=== PATIENT | male | born 1940 | race Caucasian/White ===

== ENCOUNTER 2017-05-12 13:18 | Observation (INO) | payer MEDICARE, MEDICAID ==
--- NOTE | 2017-05-12 13:46 | ED PDOC ---
HPI: General Adult Time Seen by Provider: 05/12/17 13:26 Chief Complaint (Nursing): Dizziness/Lightheaded Chief Complaint (Provider): Dizziness/Lightheaded History Per: Patient, EMS History/Exam Limitations: no limitations Onset/Duration Of Symptoms: Days (x today) Current Symptoms Are (Timing): Still Present Additional Complaint(s): Rosette is a 77 year old male who was referred by PMD to the emergency department for dizziness and low blood pressure, onset while in office today. Patient denies chest pain, palpitations, headache or loss of consciousness. PMD: [place] Past Medical History Reviewed: Historical Data, Nursing Documentation, Vital Signs Vital Signs: Last Vital Signs Temp 98 F 05/12/17 13:19 Pulse 65 05/12/17 13:38 Resp 16 05/12/17 13:38 BP 96/65 L 05/12/17 13:38 Pulse Ox 100 05/12/17 13:52 - Medical History PMH: HTN, Chronic Kidney Disease - Family History Family History: States: Unknown Family Hx - Allergies Allergies/Adverse Reactions: Allergies Allergy/AdvReac Type Severity Reaction Status Date / Time No Known Allergies Allergy Verified 05/12/17 13:21 Review of Systems ROS Statement: Except As Marked, All Systems Reviewed And Found Negative Cardiovascular: Negative for: Chest Pain, Palpitations Neurological: Positive for: Dizziness. Negative for: Headache, Other (loss of consciousness) Physical Exam - Reviewed Nursing Documentation Reviewed: Yes Vital Signs Reviewed: Yes - Physical Exam Appears: Positive for: Non-toxic Cardiovascular/Chest: Positive for: Regular Rate, Rhythm Respiratory: Positive for: Normal Breath Sounds. Negative for: Respiratory Distress Gastrointestinal/Abdominal: Positive for: Normal Exam, Soft. Negative for: Tenderness Extremity: Positive for: Normal ROM (Full). Negative for: Deformity Neurologic/Psych: Positive for: Alert, Oriented. Negative for: Motor/Sensory Deficits - Laboratory Results Result Diagrams: 05/12/17 13:50 05/12/17 13:50 - ECG O2 Sat by Pulse Oximetry: 100 (RA) Pulse Ox Interpretation: Normal Medical Decision Making Medical Decision Making: Time: 13:38 Plam: - EKG - CMP - ED Urine Dipstick - CBC Scribe Attestation: Documented by Antwan Clements, acting as a scribe for Richard Rust MD Pt states he feels well. Hypootension probably secondary to multiple antihypertensive meds, not sepsis or cardiogenic. Will place in obs for adjustment of BP meds and BP monitoring. Provider Scribe Attestation: All medical record entries made by the Scribe were at my direction and personally dictated by me. I have reviewed the chart and agree that the record accurately reflects my personal performance of the history, physical exam, medical decision making, and the department course for this patient. I have also personally directed, reviewed, and agree with the discharge instructions and disposition. Disposition - Clinical Impression Clinical Impression: Dizziness, Hypotension due to medication - Patient ED Disposition Is Patient to be Admitted: Yes - Disposition Disposition Time: 14:34 Condition: FAIR Forms: [employer] (Lithuanian) - Pt Status Changed To: Hospital Disposition Of: Observation - POA Present On Arrival: None
[2017-05-12 14:08] LABS: BASO # 0.1 K/uL (0.0-0.2); BASO % 1.2 % (0.0-2.0); EOS # 0.2 K/uL (0.0-0.7); EOS % 1.9 % (0.0-4.0); LYMPH # 1.4 K/uL (1.0-4.3); LYMPH % 16.8 % (20.0-40.0); MEAN CELL VOLUME 78.6 fl (80.0-94.0); MEAN CORPUSCULAR HEMOGLOBIN 25.8 pg (27.0-31.0); MEAN CORPUSCULAR HGB CONC 32.8 g/dL (33.0-37.0); MEAN PLATELET VOLUME 7.7 fl (7.2-11.7); MONO # 0.5 K/uL (0.0-0.8); MONO % 5.8 % (0.0-10.0); NEUT # 6.2 K/uL (1.8-7.0); NEUT % 74.3 % (50.0-75.0); NRBC % 0.1 % (0.0-0.0); RBC 5.06 Mil/uL (4.40-5.90); RED CELL DISTRIBUTION WIDTH 15.2 % (11.5-14.5); WHITE BLOOD COUNT 8.3 K/uL (4.8-10.8)
[2017-05-12 14:28] LABS: ALB/GLOB RATIO 1.2 (1.0-2.1); ALBUMIN 3.9 g/dL (3.5-5.0); CALCIUM 9.2 mg/dL (8.4-10.2)
[2017-05-12] MEDS ORDERED: Acetaminophen 650mg/20.3ml solution UD PO PRN (22:47)
[2017-05-13] MEDS ORDERED: Influenza Vaccine 18yr & older 0.5 ML/45 MCG SYR IM ONE (06:00)
[2017-05-13 06:20] LABS: HEMOGLOBIN 12.5 g/dL (12.0-18.0); MEAN CELL VOLUME 78.9 fl (80.0-94.0); MEAN CORPUSCULAR HEMOGLOBIN 25.8 pg (27.0-31.0); MEAN CORPUSCULAR HGB CONC 32.7 g/dL (33.0-37.0); RBC 4.83 Mil/uL (4.40-5.90); RED CELL DISTRIBUTION WIDTH 15.4 % (11.5-14.5); WHITE BLOOD COUNT 7.5 K/uL (4.8-10.8)
[2017-05-13] MEDS ORDERED: Levothyroxine 75 MCG TAB PO SCH (06:30)
--- NOTE | 2017-05-13 08:38 | CP.PCM.HP ---
History of Present Illness - History of Present Illness History of Present Illness: 77 YO M w/ PMH of HTN was admitted after being refered from his PMD Dr. Weiner for hypotension and dizziness in the office visit. Patient currently denies chest pain, SOB, N/V/D. Patients vitals have been stable overnight. At home patient's BP meds were Norvasc 5, HTZ 25, Lopresser BID PMH: HTN, CKD, BPH Allergy: NKDA FH: not sig PMD: Dr Weiner/Dr. [place]? Present on Admission - Present on Admission Any Indicators Present on Admission: No Past Patient History - Past Medical History & Family History Past Medical History?: Yes - Past Social History Smoking Status: Never Smoked - CARDIAC Hx Cardiac Disorders: Yes Hx Hypertension: Yes - PULMONARY Hx Respiratory Disorders: No - NEUROLOGICAL Hx Neurological Disorder: No - HEENT Hx HEENT Problems: No - RENAL Hx Chronic Kidney Disease: Yes - ENDOCRINE/METABOLIC Hx Endocrine Disorders: No - HEMATOLOGICAL/ONCOLOGICAL Hx Blood Disorders: No - INTEGUMENTARY Hx Dermatological Problems: No - MUSCULOSKELETAL/RHEUMATOLOGICAL Hx Musculoskeletal Disorders: No Hx Falls: No - GASTROINTESTINAL Hx Gastrointestinal Disorders: No - GENITOURINARY/GYNECOLOGICAL Hx Genitourinary Disorders: No - PSYCHIATRIC Hx Psychophysiologic Disorder: No Hx Substance Use: No - SURGICAL HISTORY Hx Surgeries: Yes Hx Cholecystectomy: Yes Hx Herniorrhaphy: Yes - ANESTHESIA Hx Anesthesia: Yes Hx Anesthesia Reactions: No Hx Malignant Hyperthermia: No Has any member of the family had a problem w/ anesthesia?: No Meds Allergies/Adverse Reactions: Allergies Allergy/AdvReac Type Severity Reaction Status Date / Time No Known Allergies Allergy Verified 05/12/17 13:21 Physical Exam - Constitutional Appears: No Acute Distress - Head Exam Head Exam: NORMAL INSPECTION - Respiratory Exam Respiratory Exam: Clear to Auscultation Bilateral. absent: Rhonchi, Wheezes - Cardiovascular Exam Cardiovascular Exam: REGULAR RHYTHM, +S1, +S2 - GI/Abdominal Exam GI & Abdominal Exam: Normal Bowel Sounds, Soft. absent: Tenderness - Neurological Exam Neurological exam: Alert, CN II-XII Intact, Oriented x3 Results - Vital Signs Recent Vital Signs: Last Vital Signs Temp 97.4 F L 05/13/17 08:00 Pulse 69 05/13/17 08:00 Resp 18 05/13/17 08:00 BP 127/74 05/13/17 08:00 Pulse Ox 98 05/13/17 08:00 - Labs Result Diagrams: 05/13/17 04:38 05/13/17 04:38 Labs: Laboratory Results - last 24 hr 05/12/17 05/12/17 05/12/17 13:28 13:50 13:50 WBC 8.3 RBC 5.06 Hgb 13.0 Hct 39.7 MCV 78.6 L MCH 25.8 L MCHC 32.8 L RDW 15.2 H Plt Count 180 MPV 7.7 Neut % (Auto) 74.3 Lymph % (Auto) 16.8 L [place] % (Auto) 5.8 Eos % (Auto) 1.9 Baso % (Auto) 1.2 Neut # (Auto) 6.2 Lymph # (Auto) 1.4 [place] # (Auto) 0.5 Eos # (Auto) 0.2 Baso # (Auto) 0.1 Sodium 142 Potassium 4.7 Chloride 100 Carbon Dioxide 32 H Anion Gap 15 BUN 72 H Creatinine 4.3 H Est GFR ( Amer) 16 Est GFR (Non-Af Amer) 14 POC Glucose (mg/dL) 136 H Random Glucose 116 H Calcium 9.2 Total Bilirubin 0.5 AST 22 ALT 27 Alkaline Phosphatase 64 Total Protein 7.1 Albumin 3.9 Globulin 3.2 Albumin/Globulin Ratio 1.2 Triglycerides Cholesterol LDL Cholesterol Direct HDL Cholesterol Vitamin B12 05/13/17 05/13/17 04:38 04:38 WBC 7.5 RBC 4.83 Hgb 12.5 Hct 38.1 MCV 78.9 L MCH 25.8 L MCHC 32.7 L RDW 15.4 H Plt Count 169 MPV Neut % (Auto) Lymph % (Auto) [place] % (Auto) Eos % (Auto) Baso % (Auto) Neut # (Auto) Lymph # (Auto) [place] # (Auto) Eos # (Auto) Baso # (Auto) Sodium 140 Potassium 4.3 Chloride 97 L Carbon Dioxide 32 H Anion Gap 15 BUN 74 H Creatinine 4.6 H Est GFR ( Amer) 15 Est GFR (Non-Af Amer) 13 POC Glucose (mg/dL) Random Glucose 195 H Calcium 9.0 Total Bilirubin AST ALT Alkaline Phosphatase Total Protein Albumin Globulin Albumin/Globulin Ratio Triglycerides 231 H Cholesterol 126 LDL Cholesterol Direct 60 HDL Cholesterol 20 L Vitamin B12 325 Assessment & Plan - Assessment and Plan (Free Text) Assessment: 77 YO M who was send to the ER from his PMD for hypotension and dizziness was admitted - Hold BP Meds - Hypotension and dizziness most likely secondary to overcontrolled BP - continue current management - Vitals have remained stable overnight, patient is doing well. Hypotension has resolved on holding medications.
[2017-05-13] MEDS ORDERED: Pantoprazole 40 mg EC Tab PO SCH (09:00)
--- NOTE | 2017-05-13 11:27 | CARD ---
APPROVED REPORT EKG Measurement Heart [id number] <Conclusion> Sinus rhythm Left axis deviation Minimal voltage criteria for LVH, may be normal variant Nonspecific T wave abnormality Abnormal ECG
[2017-05-13 15:51] VITALS: BP 110/67; PULSE 78; RESP 20; TEMP 97.7; O2SAT 96
--- NOTE | 2017-05-13 16:10 | CP.PCM.PCO ---
Assessment/Plan - Assessment and Plan (Free Text) Assessment: Patient seen and examined BP 110/74, pt asymptomatic. denies chest pain, shortness of breath, dizziness. Plan discussed with dr chawla: hold all bp meds for discharge Pt to follow up in Dr Holland office on tuesday. Continue other home medications. Pt will be discharged, all discusssed with Dr Fournier working with Dr Ferguson.
--- NOTE | 2017-05-13 16:19 | CP.PCM.CON ---
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 NOT YET ON HD HYPOTENSION WITH BP KYRGYZ 88 / 40 PT WAS SEEN AT MY OFFICE YESTERDAY ON REGULAR RENAL F/U .. PT DID NOT FEEL WELL WAS C/O WEAKNESS .. TIREDNESS AND LETHARGY .. BP WAS LOW 88 / 40 .. PT WAS SUPPOSED TO BE ON 5 ANTI HTN MEDS PT ALSO LOST 18 LBS FROM LAST VISIT .. HAVING CAME BACK FROM 3 MONTHS VISIT TO [place] 8 DAYS AGO PT IS PLEASANT BUT HE IS UNSURE ABOUT ALL HIS BP MEDS WHICH HE ADMITS OF TAKING THEM SELECTIVELY I DIRECTED NV TO GO FROM MY OFFICE TO THE ER FOR WALDEMAR AND ADMISSION .. PT WITH MMP AND PREVIOUS ADMISSIONS TO [facility] .. Past Patient History - Past Medical History & Family History Past Medical History?: Yes - Past Social History Smoking Status: Never Smoked - CARDIAC Hx Cardiac Disorders: Yes Hx Hypertension: Yes - PULMONARY Hx Respiratory Disorders: No - NEUROLOGICAL Hx Neurological Disorder: No - HEENT Hx HEENT Problems: No - RENAL Hx Chronic Kidney Disease: Yes - ENDOCRINE/METABOLIC Hx Endocrine Disorders: No - HEMATOLOGICAL/ONCOLOGICAL Hx Blood Disorders: No - INTEGUMENTARY Hx Dermatological Problems: No - MUSCULOSKELETAL/RHEUMATOLOGICAL Hx Musculoskeletal Disorders: No Hx Falls: No - GASTROINTESTINAL Hx Gastrointestinal Disorders: No - GENITOURINARY/GYNECOLOGICAL Hx Genitourinary Disorders: No - PSYCHIATRIC Hx Psychophysiologic Disorder: No Hx Substance Use: No - SURGICAL HISTORY Hx Surgeries: Yes Hx Cholecystectomy: Yes Hx Herniorrhaphy: Yes - ANESTHESIA Hx Anesthesia: Yes Hx Anesthesia Reactions: No Hx Malignant Hyperthermia: No Has any member of the family had a problem w/ anesthesia?: No Meds Allergies/Adverse Reactions: Allergies Allergy/AdvReac Type Severity Reaction Status Date / Time No Known Allergies Allergy Verified 05/12/17 13:21 - Medications Medications: Current Medications Acetaminophen (Tylenol 650mg/20.3ml Solution Ud) 500 mg PO Q8H PRN PRN Reason: Pain, moderate (4-7) Ergocalciferol (Drisdol 50,000 Intl Units Cap) 1 cap PO FR [facility] Ferrous Sulfate (Feosol) 325 mg PO DAILY [facility] Last Admin: 05/13/17 10:11 Dose: 325 mg Heparin Sodium (Porcine) (Heparin) 5,000 units SC Q8 SHARON PRN Reason: Protocol Last Admin: 05/13/17 10:12 Dose: 5,000 units Home Med (Dutasteride [Avodart]) 0.5 mg PO HS [facility] Home Med (Sevelamer Carbonate [Renvela]) 800 mg PO TID [facility] Insulin Human Lispro (Humalog) 0 units SC ACHS [facility] PRN Reason: Protocol Levothyroxine Sodium (Synthroid) 75 mcg PO DAILY@0630 [facility] Last Admin: 05/13/17 05:39 Dose: 75 mcg Pantoprazole Sodium (Protonix Ec Tab) 40 mg PO DAILY [facility] Last Admin: 05/13/17 10:11 Dose: 40 mg Tramadol HCl (Ultram) 50 mg PO Q8H PRN PRN Reason: Pain, severe (8-10) Results - Vital Signs Recent Vital Signs: Last Vital Signs Temp 97.7 F 05/13/17 15:50 Pulse 78 05/13/17 15:50 Resp 20 05/13/17 15:50 BP 110/67 05/13/17 15:50 Pulse Ox 96 05/13/17 15:50 - Labs Result Diagrams: 05/13/17 04:38 05/13/17 04:38 Labs: Laboratory Results - last 24 hr 05/13/17 05/13/17 05/13/17 04:38 04:38 04:38 WBC 7.5 RBC 4.83 Hgb 12.5 Hct 38.1 MCV 78.9 L MCH 25.8 L MCHC 32.7 L RDW 15.4 H Plt Count 169 Sodium 140 Potassium 4.3 Chloride 97 L Carbon Dioxide 32 H Anion Gap 15 BUN 74 H Creatinine 4.6 H Est GFR ( Amer) 15 Est GFR (Non-Af Amer) 13 Random Glucose 195 H Hemoglobin A1c 9.6 H Calcium 9.0 Triglycerides 231 H Cholesterol 126 LDL Cholesterol Direct 60 HDL Cholesterol 20 L Vitamin B12 325 Assessment & Plan - Assessment and Plan (Free Text) Assessment: ADVANCED CKD NOT YET ON HD ANEMIA OF CKD .. H/H STABLE SEVERE EPISODE OF HYPOTENSION OUTLINED ABOVE MMP .. 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 ALL HIS BP MEDS WERE KEPT ON HOLD PT IS STABLE TO GO HOME .. PT WAS INSTRUCTED TO COME TO MY OFFICE NEX WEEK TO CHECK BP AND RE START BP MEDS SLOWLY AND GRADUALLY RENAL FUNCTION STABLE OK FOR D/C - Date & Time Date: 05/13/17 Time: 15:00
[2017-05-13] MEDS ORDERED: Insulin Lispro (humaLOG) 100 Units/ml Inj SC SCH (16:30)
[2017-05-13] MEDS ORDERED: Ergocalciferol 50,000 Intl Units Cap PO SCH (22:47)
== END 2017-05-13 19:15 | disposition home or self-care (01) ==
LOC: H.ER 13:18 → H.ERHOLD 14:31 → H.TEL 21:58
PROVIDERS: ADMIT Internal Medicine; ATTEND Internal Medicine
DX: I95.2 Hypotension due to drugs (principal); I12.9 Hypertensive chronic kidney disease with stage 1 through stage 4 chronic kidney disease, or unspecified chronic kidney disease; N18.4 Chronic kidney disease, stage 4 (severe); N40.0 Benign prostatic hyperplasia without lower urinary tract symptoms; Z23 Encounter for immunization; D63.1 Anemia in chronic kidney disease
CPT/HCPCS: 36415; 80048; 80053; 80061; 82607; 82948; 83036; 85025; 85027; 93005; 99284; G0008; G0378; J1644; Q2035